=== PATIENT | male | born 1940 | race Caucasian/White ===

== ENCOUNTER 2023-02-07 17:45 | Emergency (ER) | payer MEDICARE, MEDICAID ==
[~2023-02-07] VITALS: Ht 172.7 cm; Wt 68.2 kg
[2023-02-07 17:52] VITALS: BP 138/77; PULSE 77; RESP 19; TEMP 98.8; O2SAT 96
[2023-02-07] MEDS ORDERED: OXYC-145 PO (19:23)
[2023-02-07] MEDS ORDERED: oxyCODONE/APAP 5-325mg tablet PO ONE (19:25)
== END 2023-02-07 20:28 | disposition home or self-care (01) ==
LOC: ER 17:46
DX: S63.502A Unspecified sprain of left wrist, initial encounter (principal); X58.XXXA Exposure to other specified factors, initial encounter; Y93.89 Activity, other specified; Y92.89 Other specified places as the place of occurrence of the external cause; Y99.8 Other external cause status
CPT/HCPCS: 29125; 73110; 99283

== ENCOUNTER 2024-04-04 06:48 | Day surgery (SDC) | payer MEDICARE, MEDICAID ==
[2024-03-28 14:14] LABS: BASOPHILS # (AUTO) 0.1 X10'3 (0-0.2); BASOPHILS % (AUTO) 0.9 % (0-1); EOSINOPHILS # (AUTO) 0.3 X10'3 (0-0.9); EOSINOPHILS % (AUTO) 4.5 % (0-6); LYMPHOCYTES # (AUTO) 1.6 X10'3 (1.1-4.8); LYMPHOCYTES % (AUTO) 27.2 % (21-51); MEAN CORPUSCULAR HGB CONC 34.9 g/dL (33.0-36.5); MEAN CORPUSCULAR VOLUME 97.5 FL (78-98); MEAN PLATELET VOLUME 7.6 FL (7.4-10.4); MONOCYTES # (AUTO) 0.5 X10'3 (0-0.9); MONOCYTES % (AUTO) 8.2 % (2-12); NEUTROPHILS # (AUTO) 3.6 X10'3 (1.8-7.7); NEUTROPHILS % (AUTO) 59.2 % (42-75); PRE OP HEMATOCRIT 38.3 % (42.0-52.0); PRE OP HEMOGLOBIN 13.3 g/dL (14.0-17.9); PRE OP PLATELET COUNT 273 X10'3 (140-440); RED BLOOD COUNT 3.93 X10'6 (4.70-6.10); RED CELL DISTRIBUTION WIDTH 12.5 % (11.5-14.5)
[2024-03-28 14:52] LABS: ALBUMIN 3.8 G/DL (3.4-5.0); ALBUMIN/GLOBULIN RATIO 1.1 (1.1-1.5); ALKALINE PHOSPHATASE 89 IU/L (46-116); BLOOD UREA NITROGEN 16 MG/DL (7-18); CALCIUM 8.7 MG/DL (8.5-10.1); CHLORIDE 106 MMOL/L (99-107); CREATININE 0.89 MG/DL (0.60-1.10); PRE OP ALT 21 U/L (30-65); PRE OP ANION GAP 8 (8-16); PRE OP AST 16 U/L (10-37); PRE OP BILIRUB, TOTAL 0.3 MG/DL (0.0-1.0); PRE OP GLUCOSE 91 MG/DL (70-104); PRE OP POTASSIUM 4.4 MMOL/L (3.4-5.1); PRE OP SODIUM 141 MMOL/L (135-145); TOTAL CARBON DIOXIDE 26.8 MMOL/L (24-32); TOTAL PROTEIN 7.3 G/DL (6.4-8.2); eGFR 82 ML/MIN
[~2024-04-04] VITALS: Ht 172.7 cm; Wt 67.1 kg
[2024-04-04] MEDS: ceFAZolin 2gm in dextrose, iso 50 ML IV ONE (05:30)
[~2024-04-04 06:48] MED LIST: ACET-2971 PO; CETI10CA PO; ERGO400C PO; LOPE-190 PO; MULT-1249 PO
[2024-04-04 06:58] VITALS: BP 131/85; PULSE 67; RESP 16; TEMP 97.8
[2024-04-04] MEDS: ringers solution, lacted 1,000 ML IV SCH (07:51)
[2024-04-04] MEDS: famotidine 20mg tablet PO ONE (07:51)
[2024-04-04] MEDS ORDERED: meperidine/PF 25mg/ml syringe IV PRN ×3 (08:35)
[2024-04-04] MEDS ORDERED: morphine 4 MG/ML inj SYRINge IV PRN (08:35)
[2024-04-04] MEDS ORDERED: proCHLORperazine 10 MG/2 ml inj IV PRN (08:35)
[2024-04-04] MEDS ORDERED: sevoflurane 250ml liquid IH ONE (08:35)
[2024-04-04] MEDS ORDERED: acetaminophen 1,000mg/100ml IV 100 ML IV ONE (08:35)
[2024-04-04] MEDS ORDERED: ondansetron/PF 4mg/2ml inj IV PRN (08:35)
[2024-04-04] MEDS ORDERED: morphine 2 MG/ML inj. syringe IV PRN (08:35)
[2024-04-04] MEDS ORDERED: hydrALAZINE 20mg/ml inj. IV PRN (08:35)
[2024-04-04] MEDS ORDERED: labetalol 20mg/4ml (5mg/ml) syringe IV PRN (08:35)
[2024-04-04] MEDS ORDERED: ringers solution, lacted 1,000 ML IV SCH (08:35)
[2024-04-04] MEDS ORDERED: fentaNYL/PF 50MCG/1 ML 2ML syringe ONE (08:39)
[2024-04-04] MEDS ORDERED: midazolam 1 mg/ML 2ml injection ONE (08:51)
[2024-04-04] MEDS ORDERED: 0.9 % SODIUM CHLORIDE 10 ML VIAL ONE (08:58)
[2024-04-04] MEDS ORDERED: ePHEDrine 50MG/ML INJ. ONE (08:58)
[2024-04-04] MEDS ORDERED: propofol inj 20 ML IV ONE (08:58)
[2024-04-04] MEDS ORDERED: LIDOcaine 2% (20mg/ml) 5ml vial ONE (08:58)
[2024-04-04] MEDS ORDERED: ondansetron/PF 4mg/2ml inj ONE (08:59)
[2024-04-04] MEDS ORDERED: dexamethasone sod phosphate 4mg/ml inj. ONE (08:59)
[2024-04-04] MEDS ORDERED: neostigmine methylsulfate 1 MG/ML 10ml vial ONE (09:32)
[2024-04-04] MEDS ORDERED: glycopyrrolate 0.2mg/ml inj ONE (09:32)
[2024-04-04 09:42] VITALS: BP 137/69; PULSE 68; RESP 14; O2SAT 100
[2024-04-04 09:50] VITALS: BP 152/93; PULSE 89; RESP 12; O2SAT 100
[2024-04-04 10:00] VITALS: BP 154/79; PULSE 92; RESP 16; O2SAT 100
[2024-04-04 10:10] VITALS: BP 148/71; PULSE 80; RESP 12; O2SAT 98
[2024-04-04 10:20] VITALS: BP 158/82; PULSE 66; RESP 14; O2SAT 99
== END 2024-04-04 10:22 | disposition home or self-care (01) ==
LOC: PAS 06:48
PROVIDERS: ATTEND Urology
DX: N32.89 Other specified disorders of bladder (principal); C67.9 Malignant neoplasm of bladder, unspecified; F41.9 Anxiety disorder, unspecified; M19.90 Unspecified osteoarthritis, unspecified site; F17.200 Nicotine dependence, unspecified, uncomplicated; Z79.899 Other long term (current) drug therapy; Z96.649 Presence of unspecified artificial hip joint; Z98.41 Cataract extraction status, right eye; Z98.42 Cataract extraction status, left eye; Z98.890 Other specified postprocedural states; Z88.0 Allergy status to penicillin; Z88.6 Allergy status to analgesic agent
CPT/HCPCS: 36415; 52235; 52332; 71046; 74420; 80053; 82948; 85025; A4355; A4618; C2617; J0690; J1100; J2003; J2250; J2405; J2704; J2710; J3010; J3490; J7030; J7120; Z7506; Z7508; Z7512; Z7610; 76000; 88305

== ENCOUNTER 2024-12-24 14:40 | Emergency (ER) | payer MEDICARE, MEDICAID ==
[~2024-12-24] VITALS: Ht 172.7 cm; Wt 69.0 kg
[2024-12-24 14:51] VITALS: TEMP 98.4
--- NOTE | 2024-12-24 15:13 | ELECTROCARDIOGRAPH REPORT ---
[facility] Test Date: 2024-12-24 Test Time: 15:11:06 Pat Name: ABDIFATAH AU Department: [facility] Patient ID: [facility]-[id number] Room: Gender: M Mid Level Practitioner: : 1940 Requested By: ANA LAURA ESQUIVEL Order Number: [id number] Reading MD: Dr. Yobany Tejeda Measurements Intervals [place] Rate: 72 P: -14 NM: 163 QRS: -42 QRSD: 85 T: 74 QT: 390 QTc: 427 Interpretive Statements Sinus rhythm Left axis deviation Electronically Signed On 12-28-2024 0:30:[address] Yobany Tejeda Please click the below link to view image of tracing.
--- NOTE | 2024-12-24 15:35 | Physician Documentation ---
History of Present Illness ~ General Chief Complaint: General Stated Complaint: ABD PAIN Time Seen by MD: 14:47 Primary Medical Doctor: CLAUDIA PERES Source: patient Mode of Arrival: EMS Exam Limitations: no limitations History of Present Illness Initial Comments With a history of bladder cancer. Back on the due to some hematuria he did have cystoscopy and it sounds like possibly just some click ablations in order to stop the bleeding. Last Wednesday which was 6 days ago he had a nuclear bone scan. He states since the day after he has started feeling really weak and nauseous. Today started having some chest pain and shortness of breath. Continues to smoke and currently is at half pack per day. Rare alcohol use. No drugs. Denies any other medical problems. Currently without chest pain. No cough. Medication Reconciliation Allergies: Uncoded Allergies: PENICILLIN (Allergy, Intermediate, BAD HIVES, 04/03/24) PT HAD RXN WHEN IN 20S NSAIDS (Allergy, Mild, BLOOD PRESSURE INCREASES, 04/03/24) rash Scheduled Acetaminophen (Tylenol Arthritis), 2 TAB PO Q8H, (Reported) Ergocalciferol (Vitamin D), 1 CAP PO DAILY, (Reported) Multivitamin (Multivitamin), 1 TAB PO DAILY, (Reported) Sulfamethoxazole/Trimethoprim (Bactrim Ds Tablet), 1 TAB PO Q12H Scheduled PRN Cetirizine Hcl (Zyrtec), 1 CAP PO DAILY PRN for allergies, (Reported) Loperamide HCl (Imodium A-D), 1 CAP PO Q8H PRN for diarrhea, (Reported) Past Medical History Past Medical History: Arthritis Past Surgical History: noncontributory Alcohol Use: None Drug Use: none Review of Systems All Other Systems at this time: Reviewed and Negative Physical Exam Physical Exam Vital Signs: Temperature: 98.4, Source: Oral, Heart Rate: 76, Respiratory Rate: 16, BP: 150/80, Pulse Oximetry: 95, Weight: 69.000 Oxygen Flow Rate: 0 General Appearance: alert Head: normal inspection Face: normal inspection Neck: non-tender, full range of motion Respiratory: lungs clear, normal breath sounds, no respiratory distress Chest: no accessory muscle use Cardiovascular: regular rate, rhythm Cardiovascular Trace pitting edema Gastrointestinal: normal palpation, non-tender Extremities: normal range of motion, non-tender Neurologic: oriented x4 Motor / Sensory: no motor deficit, no sensory deficit Psychiatric: normal mood/affect Skin: normal color, warm/dry Progress Results/Orders Results/Orders Orders - ANA LAURA ESQUIVEL MD Chest,Single View (12/24/24 14:58) Monitor (12/24/24 14:58) Saline Lock (12/24/24 14:58) Oxygen (12/24/24 14:58) Hs Troponin I W Calculations (12/24/24 16:58) Covid19 Binax Poc Result Entry (12/24/24 15:12) Cult Urine + [address] (12/24/24 16:38) Completed Orders - ANA LAURA ESQUIVEL MD Chest,Single View (12/24/24 14:58) Cbc/Diff (12/24/24 14:58) BMP (12/24/24 14:58) PBNP (12/24/24 14:58) Electrocardiogram (12/24/24 14:58) Hs Troponin I W Calculations (12/24/24 14:58) Ua W/Microscopic, Cult If Ind (12/24/24 16:00) Vital Signs 12/24/24 12/24/24 12/24/24 12/24/24 14:51 15:04 15:59 17:07 Temp 98.4 Pulse 76 69 69 Resp 16 16 18 18 B/P (MAP) 150/80 158/87 (110) 154/82 Pulse Ox 95 96 96 O2 Flow Rate 0 0 Laboratory Tests Test 12/24/24 15:38 12/24/24 16:00 White Blood Count 5.1 Red Blood Count 3.69 L Hemoglobin 12.3 L Hematocrit 36.0 L Mean Corpuscular Volume 97.5 Mean Corpuscular Hemoglobin 33.3 H Mean Corpuscular Hemoglobin Concent 34.1 Red Cell Distribution Width 12.6 Platelet Count 282 Mean Platelet Volume 6.7 L Neutrophils (%) (Auto) 67.4 Lymphocytes (%) (Auto) 18.5 L Monocytes (%) (Auto) 9.6 Eosinophils (%) (Auto) 3.8 Basophils (%) (Auto) 0.7 Neutrophils # (Auto) 3.5 Lymphocytes # (Auto) 1.0 L Monocytes # (Auto) 0.5 Eosinophils # (Auto) 0.2 Basophils # (Auto) 0.0 CBC Comment Sodium Level 139 Potassium Level 4.3 Chloride Level 104 Carbon Dioxide Level 26.6 Anion Gap 8 Blood Urea Nitrogen 12 Creatinine 0.76 Estimated GFR/1.73 m2 > 90 BUN/Creatinine Ratio 15.8 Glucose Level 95 Calcium Level 9.0 Troponin I High Sensitivity 10 Pro-B-Type Natriuretic Peptide 310 Albumin 3.4 Chemistry Comments Urine Specimen Description Voided Urine Color Straw Urine Clarity Clear Urine pH 6.0 Urine Specific [place] <=1.005 Urine Protein Negative Urine Glucose (UA) Negative Urine Ketones Negative Urine Occult Blood Large H Urine Nitrite Negative Urine Bilirubin Negative Urine Urobilinogen 0.2 Urine Leukocyte Esterase Trace H Urine RBC 10-20 Urine WBC 5-10 H Urine Squamous Epithelial Cells None seen Urine Bacteria Few Urine Mucus None seen Urine Culture Indicated Indicated Volume Urine Centrifuged 10 ml Urine Comment Medical Decision Making Differential Diagnosis Patient in with generalized weakness. Workup revealed urinary tract infection. Negative CBC, chemistry panel and troponin. Chest x-ray unremarkable. Placing him on Bactrim. Culture is pending. Discharged home in good condition. Follow up with PCP in the next week or return here if new or worsening symptoms. Departure Disposition: 01 HOME / SELF CARE / HOMELESS Impression: Primary Impression: UTI (urinary tract infection) Qualified Codes: N30.00 - Acute cystitis without hematuria Condition: Stable Discharge Instructions: Urinary Tract Infection, Adult, [id number] Additional Instructions: Follow up with your doctor in the next week. Return here if new or worsening symptoms. Referrals: NO PRIMARY CARE PROVIDER (PCP) Prescriptions Sulfamethoxazole/Trimethoprim (Bactrim Ds Tablet) 800 Mg-160 Mg Tablet 1 TAB PO Q12H for 7 Days, #14 TAB Prov: ANA LAURA ESQUIVEL MD 12/24/24 Education Educated: Patient Educated regarding: diagnosis, treatment, prognosis, need for follow up Signature Scribe Signature: no Scribe Attestation: No scribe ANA LAURA ESQUIVEL MD Dec 24, 2024 15:35
--- NOTE | 2024-12-24 15:40 | RADIOLOGY REPORT ---
DI CHEST,SINGLE VIEW, HISTORY: CP COMPARISON: DI CHEST,TWO VIEWS on DOS: 03/28/24 DI CHEST,TWO VIEWS on DOS: 03/28/24 TECHNICAL DATA: 1 view of the chest was obtained. FINDINGS: Lines and tubes: None Cardiomediastinal silhouette: normal Pulmonary vasculature: normal Lung expansion: normal Lung airspace: normal Lung interstitium: normal Pleura: normal Pneumothorax: no Bones: Unremarkable Other: no IMPRESSION: No acute intrathoracic abnormality. There are senescent lung changes.
[2024-12-24 15:50] LABS: MEAN PLATELET VOLUME 6.7 FL (7.4-10.4); RED CELL DISTRIBUTION WIDTH 12.6 % (11.5-14.5)
[2024-12-24 16:10] LABS: CREATININE 0.76 MG/DL (0.60-1.10); PRO BRAIN NATRIURETIC PEPTIDE 310 PG/ML (0-450); TOTAL CARBON DIOXIDE 26.6 MMOL/L (24-32); eCRCL 71 ML/MIN; eGFR > 90 ML/MIN
[2024-12-24 16:31] LABS: LEUKOCYTE ESTERASE ,URINE TRACE (Neg); NITRITES, URINE NEGATIVE (Neg); OCCULT BLOOD,URINE LARGE (Neg)
[2024-12-24 16:32] LABS: UA COLLECTION TYPE VOIDED
[2024-12-24 16:37] LABS: MUCUS STRANDS NONE SEEN /LPF (Neg); SQUAMOUS EPITHELIAL CELL,UR NONE SEEN /LPF (FEW)
[2024-12-24] MEDS ORDERED: SULF1TAB49 PO (16:50)
[2024-12-24 17:07] VITALS: BP 154/82; PULSE 69; RESP 18; O2SAT 96
== END 2024-12-24 17:09 | disposition home or self-care (01) ==
LOC: ER 14:41
DX: N39.0 Urinary tract infection, site not specified (principal); R53.1 Weakness; R11.0 Nausea; R07.9 Chest pain, unspecified; R06.02 Shortness of breath; F17.210 Nicotine dependence, cigarettes, uncomplicated; M19.90 Unspecified osteoarthritis, unspecified site; Z85.51 Personal history of malignant neoplasm of bladder; Z88.0 Allergy status to penicillin; Z88.6 Allergy status to analgesic agent
CPT/HCPCS: 36415; 71045; 80048; 81001; 83880; 84484; 85025; 87088; 93005; 99285

== ENCOUNTER 2025-02-11 19:15 | Emergency (ER) | payer MEDICARE, MEDICAID ==
[~2025-02-11] VITALS: Ht 167.6 cm; Wt 71.8 kg
[2025-02-11 19:35] LABS: MEAN PLATELET VOLUME 7.2 FL (7.4-10.4); RED CELL DISTRIBUTION WIDTH 12.9 % (11.5-14.5)
[2025-02-11 19:57] LABS: CREATININE 0.79 MG/DL (0.60-1.10); TOTAL CARBON DIOXIDE 30.7 MMOL/L (24-32); eCRCL 64 ML/MIN; eGFR > 90 ML/MIN
--- NOTE | 2025-02-11 20:18 | Physician Documentation ---
History of Present Illness ~ Chief Complaint: Blood in Urine Stated Complaint: URINATING BLOOD Time Seen by MD: 19:16 Primary Medical Doctor: CLAUDIA PERES HPI 84 year old male presents reporting that he has been undergoing a workup with his urologist Dr. Mcadams (for what, he is not entirely sure) but that since that workup he has experienced increasing blood in his urine with some difficulty urinating. He denies pain, N/V/D, weakness, LOC, other symptoms. He is a poor historian but he appears to be concerned about the bleeding. He says that his urine is mostly blood and clots at this time. He reports that his next appointment with his urologist is this Wednesday. Medication Reconciliation Allergies: Uncoded Allergies: PENICILLIN (Allergy, Intermediate, BAD HIVES, 04/03/24) PT HAD RXN WHEN IN 20S NSAIDS (Allergy, Mild, BLOOD PRESSURE INCREASES, 04/03/24) rash STEROIDS (Allergy, Unknown, 02/11/25) Scheduled Acetaminophen (Tylenol Arthritis), 2 TAB PO Q8H, (Reported) Ergocalciferol (Vitamin D), 1 CAP PO DAILY, (Reported) Multivitamin (Multivitamin), 1 TAB PO DAILY, (Reported) Scheduled PRN Cetirizine Hcl (Zyrtec), 1 CAP PO DAILY PRN for allergies, (Reported) Loperamide HCl (Imodium A-D), 1 CAP PO Q8H PRN for diarrhea, (Reported) Past Medical History Past Medical History: Arthritis Past Surgical History: noncontributory Alcohol Use: None Drug Use: none Review of Systems All Other Systems at this time: Reviewed and Negative Physical Exam Vital Signs: RN Vital Signs have been reviewed: Yes, Heart Rate: 66, Respiratory Rate: 14, BP: 131/72, Pulse Oximetry: 97, Weight: 71.820 Oxygen Flow Rate: 0 Physical Exam HEENT: PERRL, moist oral mucosa, EOMI Pulmonary: No respiratory distress GI: nondistended, soft, nontender, no guarding, no rebound MSK: no deformity Skin: w/d/i, no rash Neuro: alert, nonfocal Psych: normal affect Progress Results/Orders Results/Orders Orders - J CARLOS ESCALANTE MD Urinalysis, Cult If Indicated (02/11/25 19:22) Bladder Scan (02/11/25 ) Completed Orders - J CARLOS ESCALANTE MD Cbc/Diff (02/11/25 19:22) CMP (02/11/25 19:22) Vital Signs 02/11/25 02/11/25 19:16 20:07 Pulse 76 66 Resp 14 B/P (MAP) 134/69 131/72 (91) Pulse Ox 94 97 O2 Flow Rate 0 Laboratory Tests Test 02/11/25 19:29 White Blood Count 6.0 Red Blood Count 3.57 L Hemoglobin 12.1 L Hematocrit 35.1 L Mean Corpuscular Volume 98.3 H Mean Corpuscular Hemoglobin 33.9 H Mean Corpuscular Hemoglobin Concent 34.5 Red Cell Distribution Width 12.9 Platelet Count 252 Mean Platelet Volume 7.2 L Neutrophils (%) (Auto) 72.2 Lymphocytes (%) (Auto) 15.1 L Monocytes (%) (Auto) 8.5 Eosinophils (%) (Auto) 3.3 Basophils (%) (Auto) 0.9 Neutrophils # (Auto) 4.3 Lymphocytes # (Auto) 0.9 L Monocytes # (Auto) 0.5 Eosinophils # (Auto) 0.2 Basophils # (Auto) 0.1 CBC Comment Sodium Level 138 Potassium Level 4.2 Chloride Level 103 Carbon Dioxide Level 30.7 Anion Gap 4 L Blood Urea Nitrogen 18 Creatinine 0.79 Estimated GFR/1.73 m2 > 90 BUN/Creatinine Ratio 22.8 H Glucose Level 113 H Calcium Level 8.8 Total Bilirubin 0.2 Aspartate Amino Transf (AST/SGOT) 24 Alanine Aminotransferase (ALT/SGPT) 32 Alkaline Phosphatase 117 H Total Protein 7.0 Albumin 3.5 Globulin 3.5 Albumin/Globulin Ratio 1.0 L Chemistry Comments Medical Decision Making Additional information obtaine: N/A Findings 84 year old male with significant hematuria but good follow up with Dr. Mcadams. Workup demonstrated stable H/H. Counseled, reassured, advised follow up with his urologist as already planned. He has already been put on a course of antibiotics for his hematuria in the event it represented an infection. Urinary Diff Dx:Considerations: Include: Other Genital Diff Dx:Considerations: Include: Other Additional Comment Ddx = hematuria, AVM, bladder or kidney tumor, urolithiasis Departure Disposition: 01 HOME / SELF CARE / HOMELESS Impression: Primary Impression: Hematuria Condition: Stable Discharge Instructions: Hematuria, Adult Referrals: NO PRIMARY CARE PROVIDER (PCP) MAKENZIE MCADAMS MD Education Educated: Patient Educated regarding: diagnosis, treatment, prognosis, need for follow up Signature Scribe Signature: . Attestation: . J CARLOS ESCALANTE MD Feb 11, 2025 20:18
[2025-02-11 20:46] VITALS: BP 134/80; PULSE 80; RESP 18; TEMP 98.1; O2SAT 99
[2025-02-11 21:24] LABS: UA COLLECTION TYPE NON-SPECIFIED
[2025-02-11 21:37] LABS: SQUAMOUS EPITHELIAL CELL,UR FEW /LPF (FEW)
== END 2025-02-11 20:47 | disposition home or self-care (01) ==
LOC: ER 19:15
DX: R31.9 Hematuria, unspecified (principal); M19.90 Unspecified osteoarthritis, unspecified site; Z79.899 Other long term (current) drug therapy
CPT/HCPCS: 36415; 80053; 81001; 85025; 99284

== ENCOUNTER 2025-03-27 05:37 | Emergency (ER) | payer MEDICARE, MEDICAID ==
[~2025-03-27] VITALS: Ht 172.7 cm; Wt 70.0 kg
--- NOTE | 2025-03-27 05:52 | Physician Documentation ---
History of Present Illness ~ General Stated Complaint: BODY BRUISING Time Seen by MD: 05:43 Primary Medical Doctor: CLAUDIA PERES History of Present Illness Initial Comments Patient presents to the emergency room for evaluation of hematuria. Patient has history of bladder cancer in his had a procedure most recently six weeks ago and two brothers over the last nine months. Since that time he has been having intermittent bleeding that has picked up significantly since the past 2-3 days. Today he passed a large clot therefore came in to be evaluated as that has very painful in the bleeding seems to be getting worse. He is not on blood thinners. Denies any fevers. Dr. Landeros is his urologist. Medication Reconciliation Allergies: Uncoded Allergies: PENICILLIN (Allergy, Intermediate, BAD HIVES, 04/03/24) PT HAD RXN WHEN IN 20S NSAIDS (Allergy, Mild, BLOOD PRESSURE INCREASES, 04/03/24) rash STEROIDS (Allergy, Unknown, 02/11/25) Scheduled Acetaminophen (Tylenol Arthritis), 2 TAB PO Q8H, (Reported) Cefpodoxime Proxetil (Cefpodoxime Proxetil), 1 TAB PO Q12H Ergocalciferol (Vitamin D), 1 CAP PO DAILY, (Reported) Multivitamin (Multivitamin), 1 TAB PO DAILY, (Reported) Scheduled PRN Cetirizine Hcl (Zyrtec), 1 CAP PO DAILY PRN for allergies, (Reported) Loperamide HCl (Imodium A-D), 1 CAP PO Q8H PRN for diarrhea, (Reported) Discontinued Medications Cefpodoxime Proxetil (Cefpodoxime Proxetil), 1 TAB PO Q12H Discontinued Reason: Prescription changed Past Medical History Past Medical History: Arthritis Past Surgical History: noncontributory Alcohol Use: None Drug Use: none Review of Systems ROS All review of systems negative except as per HPI Physical Exam Physical Exam Physical Exam General: Patient is awake, alert, oriented x4 in no acute distress Head: Normocephalic and atraumatic. Eyes: Conjunctival normal. EOMI. PERRL. ENT: Mucous membranes moist. Neck: Supple, trachea is midline. Chest: Clear to auscultation bilaterally without rales, rhonchi, or wheezes. There is no accessory muscle use or retractions. Cardiac: RRR without murmurs, gallops, or rubs. Abd: Soft, nondistended, nontender, with normoactive bowel sounds. No guarding, rebound, or rigidity. Progress Results/Orders Results/Orders Orders - DAFNE MENDOZA MD Bladder Scan (03/27/25 ) Completed Orders - DAFNE MENDOZA MD Ceftriaxone/V2o-Orobcxvl 1gm (Rocephin 1 (03/27/25 07:50) Normal Saline 1000ml (0.9% Sodium Chlori (03/27/25 07:50) Vital Signs 03/27/25 03/27/25 03/27/25 03/27/25 05:44 06:10 07:05 09:44 Temp 97.5 97.5 97.2 Pulse 74 72 70 Resp 18 18 16 16 B/P (MAP) 182/89 153/80 (104) 160/89 Pulse Ox 98 97 97 Laboratory Tests Test 03/27/25 05:42 03/27/25 06:00 Urine Specimen Description Cln catch midstream Urine Color Red Urine Clarity Slightly cloudy Urine pH Urine Specific [place] Urine Protein Urine Glucose (UA) Urine Ketones Urine Occult Blood Urine Nitrite Urine Bilirubin Urine Urobilinogen Urine Leukocyte Esterase Urine RBC 50-100 Urine WBC 5-10 H Urine Squamous Epithelial Cells None seen Urine Bacteria 1+ Urine Culture Indicated Indicated Volume Urine Centrifuged 10 ml Urine Comment See note White Blood Count 5.8 Red Blood Count 3.42 L Hemoglobin 11.7 L Hematocrit 33.5 L Mean Corpuscular Volume 98.1 H Mean Corpuscular Hemoglobin 34.4 H Mean Corpuscular Hemoglobin Concent 35.0 Red Cell Distribution Width 12.6 Platelet Count 280 Mean Platelet Volume 7.1 L Neutrophils (%) (Auto) 72.8 Lymphocytes (%) (Auto) 11.6 L Monocytes (%) (Auto) 9.4 Eosinophils (%) (Auto) 5.3 Basophils (%) (Auto) 0.9 Neutrophils # (Auto) 4.2 Lymphocytes # (Auto) 0.7 L Monocytes # (Auto) 0.5 Eosinophils # (Auto) 0.3 Basophils # (Auto) 0.1 CBC Comment Prothrombin Time 10.5 INR International Normalized Ratio 1.0 Activated Partial Thromboplast Time 31 Coagulation Comments Sodium Level 141 Potassium Level 4.3 Chloride Level 106 Carbon Dioxide Level 26.5 Anion Gap 9 Blood Urea Nitrogen 15 Creatinine 0.84 Estimated GFR/1.73 m2 87 BUN/Creatinine Ratio 17.9 Glucose Level 98 Calcium Level 8.5 Albumin 3.4 Chemistry Comments Microbiology Date/Time Source Procedure Growth Status 03/27/25 06:42 Urine Clean Catch Midstream Urine Culture - Preliminary Culture received. Resulted Medical Decision Making Additional information obtaine: old records Findings Patient presents to the emergency room with chief complaint of hematuria. Differentials include but are not limited to anemia, blood describe lysis, urinary tract infection, ruptured renal cyst, postprocedural bleeding therefore emergent labs ordered to be followed up by oncoming physician as well as disposition The patient has a recurrent hematuria the patient has no active clots his postvoid bladder scan demonstrated no retention, the patient is hemodynamically stable and comfortable the patient does have a urinary tract infection he was given ceftriaxone here he will be started on antibiotics he does have a urologist to follow up with the he has been advised to return for worsening of his symptoms. Prior hospitalizations has been reviewed. Differential Diagnosis v Departure Time of Disposition: 09:17 Impression: Primary Impression: Hematuria Qualified Codes: R31.9 - Hematuria, unspecified Additional Impression: UTI (urinary tract infection) Qualified Codes: N39.0 - Urinary tract infection, site not specified; R31.9 - Hematuria, unspecified Discharge Instructions: Urinary Tract Infection, Adult Additional Instructions: Follow up with your urologist return for worsening of your symptoms Referrals: NO PRIMARY CARE PROVIDER (PCP) Prescriptions Cefpodoxime Proxetil (Cefpodoxime Proxetil) 100 Mg Tablet 1 TAB PO Q12H for 14 Days, #28 TAB 0 Refills Prov: DAFNE MENDOZA MD 03/27/25 Signature Scribe Signature: No scribe Attestation: The note accurately reflects work and decisions made by me.Kang Khan MD 03/28/25 01:16 KANG KHAN MD Mar 27, 2025 05:52 DAFNE MENDOZA MD Mar 27, 2025 09:18
[2025-03-27 06:25] LABS: MEAN PLATELET VOLUME 7.1 FL (7.4-10.4); RED CELL DISTRIBUTION WIDTH 12.6 % (11.5-14.5)
[2025-03-27 06:30] LABS: CREATININE 0.84 MG/DL (0.60-1.10); TOTAL CARBON DIOXIDE 26.5 MMOL/L (24-32); eCRCL 64 ML/MIN; eGFR 87 ML/MIN
[2025-03-27 06:34] LABS: APTT 31 SECONDS (22-32); INR 1.0 INR
[2025-03-27 06:40] LABS: UA COLLECTION TYPE CLN CATCH MIDSTREAM
[2025-03-27 06:42] LABS: SQUAMOUS EPITHELIAL CELL,UR NONE SEEN /LPF (FEW)
[2025-03-27] MEDS: CefTRIAXone/D5W-Rocephin 1gm 50 ML IV ONE (08:36)
[2025-03-27] MEDS: normal saline 1000ML IV soln IVB ONE (08:46)
[2025-03-27] MEDS ORDERED: CEFP100T7 PO (09:16)
[2025-03-27 09:44] VITALS: BP 160/89; PULSE 70; RESP 16; TEMP 97.2; O2SAT 97
== END 2025-03-27 09:54 | disposition home or self-care (01) ==
LOC: ER 05:37
DX: R31.9 Hematuria, unspecified (principal); N39.0 Urinary tract infection, site not specified; M19.90 Unspecified osteoarthritis, unspecified site
CPT/HCPCS: 36415; 51798; 80048; 81001; 85025; 85610; 85730; 86885; 86900; 86901; 87088; 96365; 99284; J0696; J7030